=== PATIENT | female | born 1975 | race Caucasian/White ===

== ENCOUNTER 2016-06-07 12:21 | Day surgery (SDC) | payer OTHER, BC ==
[2016-06-07] MEDS ORDERED: LACTATED RINGERS 1,000 ML IV ONE (13:06)
[2016-06-07] MEDS ORDERED: PROPOFOL 200 MG/20 ML VIAL IVP ONE (13:30)
[2016-06-07] MEDS ORDERED: fentaNYL 100 MCG/2 ML VIAL IVP ONE (13:30)
[2016-06-07] MEDS ORDERED: LIDOCAINE-MPF 2% 5 ML VIAL IM ONE (13:30)
[2016-06-07] MEDS ORDERED: KETOROLAC 30 MG/ML VIAL IVP ONE (13:30)
[2016-06-07] MEDS ORDERED: ONDANSETRON 4 MG/2 ML VIAL IVP ONE (13:30)
[2016-06-07] MEDS ORDERED: MIDAZOLAM 2 MG/2 ML VIAL IVP ONE (13:30)
[2016-06-07] MEDS ORDERED: HYDROcod/ACETAM 10 MG/325 MG TABLET ONE (14:07)
== END 2016-06-07 12:22 | disposition home or self-care (01) ==
PROC: 0U5B7ZZ Destruction of Endometrium, Via Natural or Artificial Opening (ICD-10-PCS; principal; 2016-06-07 13:30)
DX: N92.0 Excessive and frequent menstruation with regular cycle (principal); Z82.49 Family history of ischemic heart disease and other diseases of the circulatory system; E66.01 Morbid (severe) obesity due to excess calories; G43.909 Migraine, unspecified, not intractable, without status migrainosus
CPT/HCPCS: 58353; 81025; A9270; J7120

== ENCOUNTER 2016-11-15 06:01 | Day surgery (SDC) | payer OTHER, BC ==
--- NOTE | 2016-11-14 09:19 | PREOP HISTORY & PHYSICAL ---
DATE OF ADMISSION/SURGERY: 11/15/2016 PREOPERATIVE DIAGNOSIS: Menorrhagia operation. HISTORY OF PRESENT ILLNESS: Patient is a 41-year-old female who underwent a NovaSure ablation for men orrhagia in May. She has had off and on continued bleeding since. It was noted on ultrasound that t here was, at proximal end of the cervical canal, a 1 cm area of fluid collection. No obvious endometr ial echo was evident above this and likely represents an area of viable endometrium. PAST HISTORY: The patient has had 2 vaginal deliveries and the above NovaSure ablation. She had an ap pendectomy in , tubal ligation in . ALLERGIES: NONE KNOWN. CURRENT MEDICATIONS: Imitrex p.r.n. for migraines. FAMILY HISTORY: Both mother and father had heart disease at a relatively young age. Mother had hypert ension. Both mother and sister have hypertrophic cardiomyopathy; however the patient does not have th e condition. REVIEW OF SYSTEMS NEUROLOGIC: Migraine headaches. PHYSICAL EXAMINATION HEENT: Within normal limits. NECK: No thyromegaly. LUNGS: Clear. HEART: Regular rhythm with no murmur or gallop. ABDOMEN: Soft. No mass or gallop acromegaly. EXTREMITIES: Normal. NEUROLOGIC: Grossly intact. PELVIC: Introitus and vagina normal. Cervix is grossly normal. The uterus is normal size. There are n o palpable adnexal masses. The ultrasound findings were described above. IMPRESSION: Continued menorrhagia following NovaSure ablation. PLAN: Hysteroscopy with rollerball ablation. Procedure has been explained to the patient and is to be done with the assistance of Dr. Bone. JOB #: [id number] EXT JOB #:[id number]
[2016-11-15] MEDS ORDERED: LACTATED RINGERS 1,000 ML IV ONE (06:33)
[2016-11-15 06:46] LABS: HCG UR QUAL NEGATIVE
[2016-11-15] MEDS ORDERED: PROPOFOL 200 MG/20 ML VIAL IVP ONE (08:05)
[2016-11-15] MEDS ORDERED: LIDOCAINE-MPF 2% 5 ML VIAL IM ONE (08:05)
[2016-11-15] MEDS ORDERED: MIDAZOLAM 2 MG/2 ML VIAL IVP ONE (08:05)
[2016-11-15] MEDS ORDERED: SUCCINYLCHOLINE 200 MG/10 ML VIAL IVP ONE (08:05)
[2016-11-15] MEDS ORDERED: KETOROLAC 30 MG/ML VIAL IVP ONE (08:05)
[2016-11-15] MEDS ORDERED: DEXAMETHASONE 4 MG/ML VIAL IVP ONE (08:05)
[2016-11-15] MEDS ORDERED: fentaNYL 100 MCG/2 ML VIAL IVP ONE (08:05)
[2016-11-15] MEDS ORDERED: ONDANSETRON 4 MG/2 ML VIAL IVP ONE (08:05)
[2016-11-15] MEDS ORDERED: METOCLOPRAMIDE 10 MG/2 ML VIAL IVP ONE (08:05)
--- NOTE | 2016-11-15 08:50 | OPERATIVE REPORT ---
DATE OF SURGERY: 11/15/2016 00:00:00 PREOPERATIVE DIAGNOSIS: Menorrhagia. OPERATION: Rollerball ablation with hysteroscopy. POSTOPERATIVE DIAGNOSIS: Menorrhagia. SURGEON: Jimmie Torrez MD. WEBBING TACKER: Carlos Abdalla MD. ANESTHESIA: General endotracheal. PROCEDURE: In the lithotomy position under general anesthesia, the perineum and vagina were prepped a nd draped in the usual sterile fashion. The cervix was grasped with a single-toothed tenaculum and di lated with Hegar dilators. Old dark blood emanated on dilation. The depth was 6 cm sounding. The hyst eroscope was introduced. There was a normal-appearing endometrium and lower uterine segment, appeared to be approximately 2 cm in length from the internal cervical os. Using the rollerball with the coag set at 25, the endometrium was ablated, dragging the ball from the upper end of the small cavity to the endocervical os. This was done circumferentially. Sorbitol was used as the liquid agent. There wa s 2800 mL in and 2800 mL out. The patient tolerated the procedure well. There were no intraoperative complications. There was no blood loss. JOB #: [id number] EXT JOB #:[id number]
[2016-11-15 09:41] VITALS: BP 155/90
== END 2016-11-15 06:02 | disposition home or self-care (01) ==
LOC: SDS 06:01
PROVIDERS: ATTEND Obstetrics & Gynecology
PROC: 0U5B8ZZ Destruction of Endometrium, Via Natural or Artificial Opening Endoscopic (ICD-10-PCS; principal; 2016-11-15 07:30)
DX: N92.0 Excessive and frequent menstruation with regular cycle (principal)
CPT/HCPCS: 58563; 81025; J7120